=== PATIENT | male | born 1965 | race Caucasian/White ===

== ENCOUNTER 2017-07-22 10:55 | Day surgery (SDC) | payer OTHER ==
[~2017-07-22] VITALS: Ht 177.8 cm; Wt 65.0 kg
[~2017-07-22 10:55] MED LIST: CEFAZOLIN 1,000 MG ONE; DEXAMETHASONE 4 MG/ML, 1ML ONE; ONDANSETRON 2MG/ML, 2ML ONE; PROPOFOL 10 MG/ML, 20ML ONE
[2017-07-22] MEDS ORDERED: ACET325T26 PO (11:13)
[2017-07-22] MEDS ORDERED: SODIUM CHLORIDE FLUSH 10ML SYR IVF ONE (11:30)
[2017-07-22] MEDS ORDERED: DIPH,PERTUSS(ACELL),TET VAC/PF 0.5 ML IM-VACC ONE ×2 (11:30→11:37)
[2017-07-22] MEDS ORDERED: CEFAZOLIN PMX 1GM/50ML 50 ML IVPB ONE (11:30)
[2017-07-22] MEDS ORDERED: CEFAZOLIN PMX 1GM/50ML 50 ML ONE (11:36)
[2017-07-22] MEDS ORDERED: SODIUM CHLORIDE FLUSH 10ML SYR IVF PRN (14:30)
[2017-07-22 14:31] VITALS: BP 114/71
[2017-07-22] MEDS ORDERED: EPINEPHRINE 1 MG/ML, 1ML ONE (14:50)
[2017-07-22] MEDS ORDERED: BUPIVACAINE/PF 0.25% ONE ×2 (14:50→16:01)
[2017-07-22] MEDS ORDERED: MIDAZOLAM 1 MG/ML, 2ML ONE (15:00)
[2017-07-22] MEDS ORDERED: FENTANYL PF 250 MCG/5ML ONE (15:01)
[2017-07-22] MEDS ORDERED: LABETALOL 5MG/ML, 20ML IV PRN (17:00)
[2017-07-22] MEDS ORDERED: PROMETHAZINE 12.5 MG SUPP PR PRN (17:00)
[2017-07-22] MEDS ORDERED: hydrALAzine 20 MG/ML, 1ML IV PRN (17:00)
[2017-07-22] MEDS ORDERED: LORazepam 2 MG/ML, 1ML IVPush PRN (17:00)
[2017-07-22] MEDS ORDERED: FENTANYL PF 100 MCG/2ML IV PRN (17:00)
[2017-07-22] MEDS ORDERED: HYDROmorphone 1 MG/ML, 1ML IV PRN (17:00)
[2017-07-22] MEDS ORDERED: ACETAMINOPHEN 325 MG TABLET PO PRN (17:00)
[2017-07-22] MEDS ORDERED: MEPERIDINE/PF 25MG/0.5ML IVPush PRN (17:00)
[2017-07-22] MEDS ORDERED: OXYcodone 5 MG/5 ML ORAL.SOL UDC PO PRN (17:00)
[2017-07-22] MEDS ORDERED: PROMETHAZINE 25 MG/ML, 1ML IV PRN (17:00)
[2017-07-22] MEDS ORDERED: MEPERIDINE/PF 50 MG/ML ONE (17:12)
[2017-07-22] MEDS ORDERED: FENTANYL PF 100 MCG/2ML ONE (17:52)
[2017-07-22] MEDS ORDERED: ACETAMINOPHEN 650 MG/20.3 ML UDC ONE (17:52)
[2017-07-22] MEDS ORDERED: OXYcodone 5 MG/5 ML ORAL.SOL UDC ONE (17:53)
== END 2017-07-22 20:13 | disposition home or self-care (01) ==
LOC: ED 11:30 → EDIP 14:11 → UNDOADMIN 14:11 → UNDODISIN 15:10 → OR 19:00
PROVIDERS: ATTEND Orthopaedic Surgery
DX: M79.5 Residual foreign body in soft tissue (principal)
CPT/HCPCS: 27310; 73560; 76001; 90471; 90715; 96365; 96366; 99285; J0171; J0690; J1100; J2175; J2250; J2405; J2704; J3010; J3490